=== PATIENT | male | born 1950 | race Caucasian/White ===

== ENCOUNTER 2017-09-09 06:08 | Day surgery (SDC) | payer OTHER, BC ==
[2017-08-30 14:14] VITALS: BMI 26.9
[2017-09-09] MEDS ORDERED: DEXAMETHASONE SOD PHOSPHATE/PF 10 MG/ML SDV ONE (07:06)
[2017-09-09] MEDS ORDERED: MEPIVACAINE HCL/PF 1% 30 ML VIAL ONE (07:06)
[2017-09-09] MEDS ORDERED: MIDAZOLAM HCL 2 MG/2 ML SINGLE DOSE VIAL ONE (07:06)
[2017-09-09] MEDS ORDERED: BUPIVACAINE HCL/PF (5 MG/ML) 30 ML VIAL IJ ONE (07:07)
[2017-09-09] MEDS ORDERED: PROPOFOL 20 ML ONE ×3 (08:06)
[2017-09-09] MEDS ORDERED: DEXAMETHASONE SOD PHOSPHATE 4 MG/1 ML VIAL ONE (08:12)
[2017-09-09] MEDS ORDERED: ONDANSETRON 4 MG/2 ML VIAL ONE (08:12)
[2017-09-09] MEDS ORDERED: ceFAZolin SODIUM 1 GM VIAL ONE (08:12)
--- NOTE | 2017-09-09 09:58 | OP ---
Operative Note - Note: Operative Date: 09/09/17 Pre-Operative Diagnosis: R shoulder rotator cuff tear Operation: R shoulder arthroscopic rotator cuff repair w/ biceps tenotomy and subacromial decompression Implants: speed bridge kit from [employer] with biocomposite anchors Surgeon: Baudilio Smith Anesthesiologist/BANDAGE MAKER: Daniele Reilly Anesthesia: Fractional Estimated Blood Loss (mls): 20 Operative Report Dictated: Yes
[2017-09-09 11:09] VITALS: TEMP 98.2
[2017-09-09 13:12] VITALS: BP 133/72; PULSE 60
--- NOTE | 2017-09-09 13:56 | OP ---
DATE OF OPERATION: 09/09/2017 PREOPERATIVE DIAGNOSIS: Right shoulder rotator cuff tear. POSTOPERATIVE DIAGNOSIS: Right shoulder rotator cuff tear. PROCEDURE: Right shoulder arthroscopy with rotator cuff repair, biceps tenotomy, subacromial decompression, co-planing of distal clavicle. SURGEON: Baudilio Smith MD ANESTHESIA: Regional plus sedation. POSTOPERATIVE CONDITION: Stable. COMPLICATIONS: None. IMPLANTS: [employer] SpeedBridge kit with 4 SwiveLock anchors. INDICATIONS: This is a 67-year-old gentleman who had suffered a fall and injured his right shoulder. MRI demonstrated a full-thickness rotator cuff tear with retraction. Treatment options including nonoperative versus operative management were discussed. Operative risks were reviewed in detail including bleeding, infection, neurovascular injury, need for further surgery, postoperative pain and stiffness, re-tear, progression of osteoarthritis. We discussed medical risks such as heart attack, stroke, DVT, PE, and . I reviewed the postoperative rehabilitation protocol. I addressed all the patient's questions. He voiced understanding and elected to proceed. DESCRIPTION OF PROCEDURE: The patient was brought to the operating room where he was placed into the beach chair position. All the bony prominences were padded. Sedation anesthesia was then administered. The right upper extremity was prepped and draped in the usual sterile fashion. A preoperative dose of antibiotics was given, and the usual timeout procedure was performed. A preoperative examination demonstrated full range of motion of the shoulder. There was good stability. Standard posterior portal was now marked out and established. The arthroscope was passed into the glenohumeral joint. The scope passed in very easily, suggestive of large rotator cuff tear. Diagnostic arthroscopy was now performed. The biceps was significantly frayed within the joint. There was fraying of the superior labrum as well. There was mild degenerative change about the superior aspect of the glenoid. There was fraying diffusely about the labrum. Passing the arthroscope anteriorly, the subscapularis was visualized, and this was seen to be intact. In order to gain better visualization, an anterior portal was now established under spinal needle localization, and the biceps was released. Now, the entire supraspinatus and infraspinatus footprints were visualized and were devoid of any tendon. The lateral portal was now established, again under spinal needle localization. The cannula was passed. The greater tuberosity was debrided gently using a shaver down to bleeding bone. The rotator cuff was now grasped, and it was found that there was not adequate mobilization. Utilizing electrocautery, it was freed from the surrounding soft tissue including the bursa and extending deep to the rotator cuff, over the glenoid neck. With adequate mobilization now obtained, the remainder of the bursa was removed. The decision was made to perform a double-row knotless repair. Using percutaneous technique, 2 medial row anchors were inserted anteriorly and then posteriorly at the medial margin of the greater tuberosity. [place] purchase was good. The sutures were then passed both anteriorly and posteriorly through the cuff using a Cellectar suture passing device. The sutures were then cut at their passing ends to separate them into their individual strands. Utilizing a crossing pattern, the sutures were then loaded into a lateral anchor, which was then punched and then inserted, reducing the rotator cuff onto the greater tuberosity. The repair was examined. Posteriorly, there was still a free flap of infraspinatus, and so, utilizing the sutures from the posterolateral anchor, these were passed into a vertical mattress type configuration and then tied, securing the entire cuff. The cuff was now passed through a range of motion and found to be stable. The bony prominence of the acromion was now shaved down to a flat surface. The of the clavicle was protruding down inferiorly as well, and this was also debrided down to a smooth surface. The excess fluid was now withdrawn from the joint. The portals were sutured using 4-0 nylon. Sterile dressings were placed. Patient was transferred to recovery room in stable condition. Shaggy LEW/[id number]
== END 2017-09-09 12:10 | disposition home or self-care (01) ==
LOC: FASU 06:08
PROVIDERS: ATTEND Orthopaedic Surgery Sports Medicine
PROC: 0PB94ZZ Excision of Right Clavicle, Percutaneous Endoscopic Approach (ICD-10-PCS; 2017-09-09)
PROC: 0RBJ4ZZ Excision of Right Shoulder Joint, Percutaneous Endoscopic Approach (ICD-10-PCS; 2017-09-09)
PROC: 0LB14ZZ Excision of Right Shoulder Tendon, Percutaneous Endoscopic Approach (ICD-10-PCS; principal; 2017-09-09 08:22)
PROC: 0RNJ4ZZ Release Right Shoulder Joint, Percutaneous Endoscopic Approach (ICD-10-PCS; 2017-09-09 08:22)
DX: M75.121 Complete rotator cuff tear or rupture of right shoulder, not specified as traumatic (principal)
CPT/HCPCS: 94760